=== PATIENT | male | born 2000 | race Hispanic/Latino ===

== ENCOUNTER 2025-03-23 08:23 | Emergency (ER) | payer OTHER, SELFPAY ==
[2025-03-23 08:27] VITALS: BP 111/80
--- NOTE | 2025-03-23 08:53 | ED.GENMED ---
History of Present Illness
General
Chief Complaint: Fainting Sensation
Time Seen by Provider: 03/23/25 08:33
History of Present Illness
History of Present Illness:
24-year-old male without significant past medical history presenting to the emergency department for episode of dizziness and shortness of breath. Patient reports 4 days ago when he was at the gym, after 10 minutes of cardio he felt short of
breath. The following day went to the gym and after doing squats he felt dizzy. He notes that he works out almost every day and this does not usually happen to him. He went to the gym yesterday and today, without any symptoms. Currently is
asymptomatic. Denies any cardiac history. Denies any history of PE. Denies any recent surgery or travel. Denies fever or recent illness. Denies any preworkout or unusual consumption prior to the gym. Denies additional acute medical complaints
Phy Exam
Physical Exam
Physical Exam:
General: Well-appearing, no clinical signs of dehydration, nontoxic and in no acute distress
HEENT: protecting airway
Neck: appears supple
CV: Normal heart rate, regular rhythm
Resp: No accessory muscle use, no increased work of breathing, lungs clear to auscultation bilaterally
Abd: No distention
Extremities: No deformities, no swelling
Neuro: alert, no focal neurologic deficit
: deferred
Rectal: deferred
Psych: Normal affect
Skin: Intact
Course
Orders/Labs/Results
Orders:
Orders
03/23/25
Electrocardiogram (*1) Stat
Reason for Study: Chest Pain
Comment: DONE
03/23/25 08:48
Complete Blood Count/With Diff Urgent
Comprehensive Metabolic Panel Urgent
Troponin I Urgent
03/23/25 08:49
EKG- Treatment ONCE
Vital Signs
Initial and Last Documented VS:
Initial Vital Signs
Temp Pulse Resp BP Pulse Ox
97.5 F 75 20 111/80 97
03/23/25 08:27 03/23/25 08:27 03/23/25 08:27 03/23/25 08:27 03/23/25 08:27
Last Documented Vital Signs
Temp Pulse Resp BP Pulse Ox
97.5 F 75 20 111/80 97
03/23/25 08:27 03/23/25 08:27 03/23/25 08:27 03/23/25 08:27 03/23/25 08:56
MDM/Problems Addressed
MDM/Problems Addressed:
24-year-old male without significant past medical history presenting for an episode of dizziness and shortness of breath. Vital signs on arrival are normal.
On exam patient is resting comfortably, no acute distress or discomfort. Unremarkable examination. Unremarkable cardiac and pulmonary exam. No focal neurologic deficits. Unclear etiology of patient's symptoms 2 days ago, however currently
asymptomatic and hemodynamically stable. Will screen with EKG, however lower suspicion for ACS with absence of risk factors. Lower suspicion for arrhythmia. No PE risk factors. No focal neurologic deficits or concern for central neurologic
process. Will screen with laboratory analysis. However ultimately suspect mild vasovagal component to symptoms.
09:10 - Patient refusing laboratory analysis. Feel reasonable given hemodynamic stability and low suspicion for acute process. Feel stable for discharge with outpatient PCP follow-up
*Pulse Oximetry
SaO2: 97
Oxygen Mode of Delivery: Room air
Patient hypoxic: no
*Critical Care Note
Total Time (30-74mins, 75-104mins- exclusive of procedures): Not Applicable
ED Attending Note
-
Portions of this chart may have been created with voice recognition software.� Occasional wrong word or��sound alike� substitutions may have occurred due to the inherent limitations of voice recognition software.
Discharge Plan
Departure
Patient Disposition: Home (Routine Discharge)
Date of Disposition: 03/23/25
Time of Disposition: 09:01
Patient with high blood pressure during this ER visit?: No
Condition: Good
Discharge Problem:
Dizziness
Instructions: Near Fainting (DC)
Stand Alone Forms: Return to Work
Activity Restrictions/Additional Instructions:
You were seen in the emergency department for episode of dizziness and shortness of breath
You were found to a normal EKG. We suspect mild dehydration as etiology of your symptoms. Please continue to appropriately hydrate prior to working out.
Please follow-up closely with your primary care physician.
Return to the emergency department for any worsening of your symptoms, or any development of chest pain, difficulty breathing, abdominal pain with persistent vomiting and inability to tolerate food or liquid by mouth (concern for dehydration),
weakness, headache or confusion, fever greater than 100.4, or any additional symptoms that are concerning to you.
Thank you for choosing [facility].
Interventions
Interventions:
*Risk Screen - Suicide Last Done: 03/23/25 08:27
*General Assessment Last Done: 03/23/25 08:54
*Neglect/Abuse Screening Last Done: 03/23/25 08:54
*ED- Fall Risk Assessment Last Done: 03/23/25 08:54
*ED COVID-19 Vaccine History Last Done: 03/23/25 08:54
*ED Influenza Vaccine History Last Done: 03/23/25 08:54
*Nursing Disposition Last Done: 03/23/25 09:20
ED- Cardiac Assessment Last Done: 03/23/25 08:54
ED- Neurological Assessment Last Done: 03/23/25 08:54
Discharge Date and Time
Discharge Date/Time: 03/23/25 09:38
Print Language: PASHTO
[2025-03-23 08:54] VITALS: BMI 26.3
== END 2025-03-23 09:38 | disposition home or self-care (01) ==
LOC: EMR 08:23
PROVIDERS: EMERGENCY PHYSICIAN Student in an Organized Health Care Education/Training Program
DX: R42 Dizziness and giddiness (principal); R06.02 Shortness of breath
CPT/HCPCS: 99283; 93005